=== PATIENT | male | born 1955 | race Caucasian/White ===

== ENCOUNTER 2016-08-23 05:18 | Observation (INO) | payer MEDICARE, BC ==
[2016-08-16 16:51] LABS: HEMOGLOBIN 14.7 g/dL (13.6-17.8)
[2016-08-16 16:53] LABS: HEMATOCRIT 45.4 % (40.0-51.0)
[2016-08-16 17:08] LABS: BUN (BLOOD UREA NITROGEN) 19 MG/DL (6-23); CHLORIDE, SERUM 106 MMOL/L (96-112); CO2 (CARBON DIOXIDE) 28 MMOL/L (24-34); CREATININE 0.99 MG/DL (0.70-1.30); GFR AFRICAN AMERICAN 95 ML/MIN (>=60); GFR NON AFRICAN AMERICAN 82 ML/MIN (>=60); SODIUM, SERUM 142 MMOL/L (135-148)
[2016-08-16 17:11] LABS: CALCIUM, SERUM 9.5 MG/DL (8.5-10.4); GLUCOSE, SERUM 113 MG/DL (60-99); POTASSIUM, SERUM 4.7 MMOL/L (3.5-5.3)
--- NOTE | ~2016-08-23 | PREOPHP ---
PreOp History and Physical [address] [place]. [address] NAME: SHALA DOTY : 55 STATUS : ADM IN PAT#: [id number] AGE: 61 ADM/REG DATE : 08/23/16 MR#: [id number] REPORT SERV DATE: 08/23/16 DICTATED BY: DOV ULLOA DATE: 08/23/16 REPORT STATUS : Draft TRANSCRIBED BY: MODuD DATE: 08/23/16 CHIEF COMPLAINT: Back pain. HISTORY OF PRESENT ILLNESS: The patient is a pleasant 61-year-old with intractable back pain. He has failed multiple previous attempts at conservative treatment. After discussion of risks and benefits, he elected to proceed with surgical intervention. He has had a prior right-sided L5-S1 diskectomy and has severe degenerative disk disease. REVIEW OF SYSTEMS: He denies chest pain, shortness of breath, and bowel or bladder changes. ALLERGIES: INCLUDE ELAVIL, INDERAL, AND WELLBUTRIN. HOME MEDICATIONS: 1. Fioricet. 2. Cartia XT. 3. Clonazepam. 4. Dutasteride. 5. Lamotrigine. 6. Magnesium. 7. Methadone. 8. Omeprazole. 9. ProAir. 10.Seroquel. 11.Sertraline. 12.Simvastatin. 13.Sucralfate. 14.Tamsulosin. 15.Triazolam. 16.Tylenol. 17.Verapamil. FAMILY HISTORY: Noncontributory. PAST MEDICAL HISTORY: 1. Anxiety. 2. Osteoarthritis. 3. Depression. 4. Gastric ulcers. 5. High cholesterol. 6. Migraines. 7. Peripheral neuropathy. 8. Gastric reflux. PHYSICAL EXAMINATION: VITAL SIGNS: Height 6 feet 1 inch, weight 220, BMI 27.7. GENERAL: The patient is healthy appearing, in no acute distress. PreOp History and Physical [address] [address] NAME: SHALA DOTY : 55 STATUS : ADM IN PAT#: [id number] AGE: 61 ADM/REG DATE : 08/23/16 MR#: [id number] REPORT SERV DATE: 08/23/16 DICTATED BY: DOV ULLOA DATE: 08/23/16 REPORT STATUS : Draft TRANSCRIBED BY: MODDu DATE: 08/23/16 PSYCH: Alert and oriented x3. Normal mood and affect. Gait is antalgic. VASCULAR: No extremity swelling. SPINE: Decreased range of motion. NEUROLOGIC: Strength in lower extremities remains intact. No focal deficits. HEART: Regular rate and rhythm. LUNGS: Clear to auscultation. ABDOMEN: Soft, nontender, and nondistended with good bowel sounds. BREASTS: Deferred. RECTAL: Deferred. IMAGING: I have reviewed the MRI scan, the patient does have L2 to S1 disk disease and stenosis. ASSESSMENT: L2-S1 disk disease and stenosis. Intractable pain. PLAN: The patient presents today for surgical intervention. We discussed in detail in the office that we would be performing the laminectomy. The patient is a long-time smoker and states that he is unwilling to stop smoking as a result I did not want to consider a multilevel fusion as the risk with the nicotine will be high in terms of pseudoarthrosis and possible need for additional surgeries. The patient understands this and that will not relieve all of his back pain certainly from the arthritic issues, but we would hope for significant improvement just with the decompression of the severely compressed nerve roots. He understands this and he is willing to proceed. DAPHNEY/FAWN Dov Ulloa DO / [id number] CC: DO Astrid Nuñez M.D.
--- NOTE | ~2016-08-23 | OP ---
Record Of Operation [facility] [address] [place]. [address] NAME: SHALA DOTY : 55 STATUS : ADM IN PAT#: [id number] AGE: 61 ADM/REG DATE : 08/23/16 MR#: [id number] REPORT SERV DATE: 08/23/16 DICTATED BY: DOV RICHEY DATE: 08/23/16 REPORT STATUS : Draft TRANSCRIBED BY: MODL DATE: 08/23/16 DATE OF PROCEDURE: 08/23/2016 POSTOPERATIVE DIAGNOSES: L2 through S1 disk disease and stenosis. POSTOPERATIVE DIAGNOSIS: L2 through S1 disk disease and stenosis. PROCEDURE: L2 through S1 open laminectomy and bilateral foraminotomies, use of neuromonitoring. SURGEON: Dov Richey DO ANESTHESIA: General. ESTIMATED BLOOD LOSS: 150 mL. COMPLICATIONS: None. INDICATIONS: The patient is a 61-year-old, with intractable back pain, failed conservative treatment. After discussion of risks and benefits, he elected to proceed with surgery. PROCEDURE IN DETAIL: I identified the patient in the holding area. Consent was obtained, went to the operating room, underwent general anesthesia with endotracheal intubation, turned to prone position, prepped draped in the usual sterile fashion, operative safety pause was performed, then we proceeded. A midline longitudinal incision was made at L2 down to S1 taken down to the fascial layer. Paraspinous muscles subperiosteally elevated to the medial aspect of the facet joints. Self-retaining retractors were placed. A [place] elevator was placed, and lateral fluoroscopic image used to verify operative level. [place]geur was used to remove spinous processes and underlying lamina at L2 down to S1. [place] removed remaining lamina and underlying ligamentum flavum at L2 through S1. Performed foraminotomies, partial facetectomies at L2 through S1, decompressing the L2 through S1 nerve roots bilaterally. Irrigation was performed. Hemostasis was achieved. Subfascial drain was placed. Layered closure was performed. A gram of vancomycin powder was sprinkled over the surgical wound prior to closure. Sterile dressings were applied. The patient was awoken, extubated, and taken recovery room in stable condition. OPERATIVE FINDINGS: L2 through S1 disk disease and stenosis. No sustained neuromonitoring alerts. DAPHNEY/FAWN Dov Richey DO Record Of Operation [address] [place]. [address] NAME: SHALA DOTY : 55 STATUS : ADM IN PAT#: [id number] AGE: 61 ADM/REG DATE : 08/23/16 MR#: [id number] REPORT SERV DATE: 08/23/16 DICTATED BY: DOV RICHEY DATE: 08/23/16 REPORT STATUS : Draft TRANSCRIBED BY: MODL DATE: 08/23/16 / [id number] CC: Dov Richey DO
[~2016-08-23 05:18] MED LIST: ACTIQ400 MCG BU; CALAN80 MG PO; FENTORA BU; KLONO1 PO; METHATAB10 PO; NEXIUM40 PO; NITROSTAT0.4 MG SL; ROXICODONE30 MG PO; SEROQUEL1C PO; ZOL100 PO; [UNRECOGNIZED DRUG - OTHER] PO
[2016-08-23 09:51] LABS: BASOPHILS 0.5 %; BASOPHILS ABSOLUTE 0.03 10/3/uL (0.0-0.16); EOSINOPHILS 1.9 %; EOSINOPHILS ABSOLUTE 0.12 10/3/uL (0.0-0.53); HEMOGLOBIN 11.9 g/dL (13.6-17.8); IMMATURE GRANULOCYTES 0.3 %; IMMATURE GRANULOCYTES ABSOLUTE 0.02 10/3/uL (0.0-0.11); LYMPHOCYTES 21.5 %; LYMPHOCYTES ABSOLUTE 1.38 10/3/uL (0.67-4.30); MEAN CORPUS HGB CONC 32.3 g/dL (32.0-36.0); MEAN CORPUSCULAR HEMOGLOB 30.4 pg (26.0-34.0); MEAN PLATELET VOLUME 8.5 fL (9.2-13.0); MONOCYTES 2.5 %; MONOCYTES ABSOLUTE 0.16 10/3/uL (0.21-1.20); NEUTROPHILS 73.3 %; PLATELET COUNT 155 10/3/uL (150-400); RBC DISTRIBUTION WIDTH 14.6 % (12.0-16.0); RED CELL COUNT 3.91 10/6/uL (4.7-6.1); WHITE BLOOD CELLS 6.4 10/3/uL (4.5-10.5)
[2016-08-23 09:55] LABS: HEMATOCRIT 36.8 % (40.0-51.0); MANUAL DIFF NO %; MEAN CORPUSCULAR VOLUME 94.1 fL (80-100)
[2016-08-23 10:04] LABS: BUN (BLOOD UREA NITROGEN) 18 MG/DL (6-23); CHLORIDE, SERUM 111 MMOL/L (96-112); CO2 (CARBON DIOXIDE) 24 MMOL/L (24-34); CREATININE 0.93 MG/DL (0.70-1.30); GFR AFRICAN AMERICAN 102 ML/MIN (>=60); GFR NON AFRICAN AMERICAN 88 ML/MIN (>=60); POTASSIUM, SERUM 3.9 MMOL/L (3.5-5.3); SODIUM, SERUM 143 MMOL/L (135-148)
[2016-08-23 10:05] LABS: CALCIUM, SERUM 7.9 MG/DL (8.5-10.4); GLUCOSE, SERUM 165 MG/DL (60-99)
[2016-08-24 05:08] LABS: BASOPHILS 0.1 %; BASOPHILS ABSOLUTE 0.01 10/3/uL (0.0-0.16); EOSINOPHILS 0.1 %; EOSINOPHILS ABSOLUTE 0.01 10/3/uL (0.0-0.53); IMMATURE GRANULOCYTES 0.2 %; IMMATURE GRANULOCYTES ABSOLUTE 0.02 10/3/uL (0.0-0.11); LYMPHOCYTES 14.4 %; LYMPHOCYTES ABSOLUTE 1.38 10/3/uL (0.67-4.30); MEAN CORPUS HGB CONC 33.6 g/dL (32.0-36.0); MEAN CORPUSCULAR HEMOGLOB 30.9 pg (26.0-34.0); MEAN CORPUSCULAR VOLUME 91.9 fL (80-100); MEAN PLATELET VOLUME 8.9 fL (9.2-13.0); MONOCYTES 5.3 %; MONOCYTES ABSOLUTE 0.51 10/3/uL (0.21-1.20); NEUTROPHILS 79.9 %; NEUTROPHILS ABSOLUTE 7.65 10/3/uL (2.02-8.40); PLATELET COUNT 170 10/3/uL (150-400); RBC DISTRIBUTION WIDTH 14.2 % (12.0-16.0); RED CELL COUNT 3.56 10/6/uL (4.7-6.1)
[2016-08-24 05:09] LABS: HEMATOCRIT 32.7 % (40.0-51.0); MANUAL DIFF NO %; WHITE BLOOD CELLS 9.6 10/3/uL (4.5-10.5)
[2016-08-24 05:17] LABS: BUN (BLOOD UREA NITROGEN) 15 MG/DL (6-23); CALCIUM, SERUM 8.3 MG/DL (8.5-10.4); CHLORIDE, SERUM 108 MMOL/L (96-112); CO2 (CARBON DIOXIDE) 27 MMOL/L (24-34); CREATININE 0.84 MG/DL (0.70-1.30); GFR AFRICAN AMERICAN 110 ML/MIN (>=60); GFR NON AFRICAN AMERICAN 95 ML/MIN (>=60); POTASSIUM, SERUM 4.2 MMOL/L (3.5-5.3); SODIUM, SERUM 142 MMOL/L (135-148)
[2016-08-24 05:18] LABS: GLUCOSE, SERUM 102 MG/DL (60-99)
[2016-08-24] MEDS ORDERED: PCET PO (10:53)
[2016-08-24] MEDS ORDERED: FLEX PO (10:53)
== END 2016-08-24 12:50 | disposition home or self-care (01) ==
LOC: SDC/OF 05:18 → PACU 09:33 → 3SO 10:57
PROVIDERS: Orthopaedic Surgery
PROC: 01NB0ZZ Release Lumbar Nerve, Open Approach (ICD-10-PCS; principal; 2016-08-23 06:45)
DX: M48.07 Spinal stenosis, lumbosacral region (principal); M51.37 Other intervertebral disc degeneration, lumbosacral region; I10 Essential (primary) hypertension; E78.00 Pure hypercholesterolemia, unspecified; F41.9 Anxiety disorder, unspecified; M19.90 Unspecified osteoarthritis, unspecified site; F32.9 Major depressive disorder, single episode, unspecified; G43.909 Migraine, unspecified, not intractable, without status migrainosus; G62.9 Polyneuropathy, unspecified; K21.9 Gastro-esophageal reflux disease without esophagitis; F17.210 Nicotine dependence, cigarettes, uncomplicated; J44.9 Chronic obstructive pulmonary disease, unspecified; Z87.11 Personal history of peptic ulcer disease; Z87.442 Personal history of urinary calculi; Z88.5 Allergy status to narcotic agent; Z88.6 Allergy status to analgesic agent; Z88.8 Allergy status to other drugs, medicaments and biological substances; Z79.899 Other long term (current) drug therapy
CPT/HCPCS: 36415; 80048; 83735; 85014; 85018; 85025; 86850; 86900; 86901; 88304; 88311; 93005; 94640; 96374; 96376; 97161-GP; A9270-GY; G0378; G8978-CH-GP; G8979-CH-GP; G8980-CH-GP; J0690; J1030; J1170; J2250; J2270; J2405; J2710; J3010; J3370